=== PATIENT | male | born 1990 | race Caucasian/White ===

== ENCOUNTER 2019-08-02 14:20 | Inpatient (IN) | payer MEDICAID ==
[~2019-08-02] VITALS: Ht 185.4 cm; Wt 109.8 kg
[2019-08-02 15:07] LABS: PLATELET COUNT 201 x10^3mcL (130-400); RED CELL DISTRIBUTION WIDTH 13.8 % (11.5-14.5)
[2019-08-02 15:14] LABS: CALCIUM 8.5 mg/dL (8.5-10.1); CARBON DIOXIDE 26.1 mmol/L (21-32); CHLORIDE SERUM 92 mmol/L (98-107); GFR1 > 60 mL/min; GLUCOSE SERUM 107 mg/dL (74-106); POTASSIUM SERUM 3.6 mmol/L (3.5-5.1); SODIUM SERUM 129 mmol/L (136-145)
[2019-08-02 15:19] LABS: ALKALINE PHOSPHATASE 189 U/L (46-116); ALT/SGPT 91 U/L (16-63); AST/SGOT 62 U/L (15-37); BILIRUBIN TOTAL 3.9 mg/dL (0.20-1.00); LIPASE 134 IU/L (73-393); TOTAL PROTEIN, SERUM 7.6 g/dL (6.4-8.2)
[2019-08-02 15:20] LABS: ALBUMIN 2.7 g/dL (3.4-5.0)
[2019-08-02 16:06] LABS: BAND NEUTROPHIL 10 % (0-10); METAMYELOCTE 3 % (0-2); MONOCYTE 7 % (0-7); SEGMENTED NEUTROPHILS 75 % (37-75); rbc morphology (normal/abnorm) NORMAL (NORMAL)
[2019-08-02 16:11] LABS: PLATELET MORPHOLOGY FEW LARGE PLATELET
--- NOTE | 2019-08-02 17:05 | NUR ---
ABD PAIN X4 DAYS WITH N/V/D NO FEVER BUT CHILLS AT NIGHT. PAIN TO UPPER QUADRANTS, TENDER TO PALPATION , HYPOACTIVE BOWEL SOUNDS IN LUQ. ACTIVE BOWEL SOUNDS IN OTHER QUADRANTS. NOT ABLE TO HOLD FLUIDS OR FOOD FOR FOUR DAYS.
--- NOTE | 2019-08-02 17:38 | NUR ---
PT TO CT, INSTRUCTED TO GIVE URINE FOR TEST WHEN RETURNS. AMBULATORY WITHOUT ASSISTANCE
--- NOTE | 2019-08-02 18:36 | NUR ---
PT TO DO APPENDECTOMY, TEAM TO COME IN 30 MIN
--- NOTE | 2019-08-02 19:37 | NUR ---
DR Michel BYRD AT BEDSIDE SPEAKING WITH PT ABOUT THE PROCEDURE, PT AGREES PT WILL SIGN THE CONSENT WHEN HE GETS TO OR. PT IS A/XR
[2019-08-02 19:44] LABS: UA SPECIFIC GRAVITY <=1.005 (1.005-1.035); microscopic required? YES; urine erythrocyte TRACE (NEGATIVE)
--- NOTE | 2019-08-02 19:46 | NUR ---
DR MCKEON NOTIFIED OF HIGH TEMP. NO NEW ORDERS
[2019-08-02 19:52] LABS: AMPHETAMINE QUAL UR NONE DETECTED (See below)
--- NOTE | 2019-08-02 22:10 | NUR ---
RECEIVED PT FROM PACU, S/P LAPAROSCOPIC APPENDECTOMY. AAOX4. DENIES HEADACHE/ DIZZINESS. ABLE TO FOLLOW COMMANDS. NO SOB NOTED, LUNG SOUNDS CTA. DENIES CHEST PAIN/PRESSURE. DENIES ABDOMINAL DISCOMFORT. BOWEL SOUNDS ACTIVE. ABDOMEN IS SOFT. W/ 2 SMALL BAND-AIDS ON THE LEFT AND MID-ABDOMEN AND ABDOMINAL DRESSING ON THE LOWER ABDOMEN, CDI. W/ ALEN-SOUSA DRAINING SEROSANGUINEOUS DRAINAGE. MILD JAUNDICE NOTED. PULSES ARE PALPABLE. SIDE RAILS UPX2. CALL LIGHT ON REACH. ENDORSED TO PRIMARY NURSE SHLOMO FOR CONTINUITY OF CARE
[2019-08-02 22:24] VITALS: BP 121/69
[2019-08-02 22:32] VITALS: Ht 185.4 cm; Wt 109.8 kg
--- NOTE | 2019-08-03 05:51 | NUR ---
60 ML SANGUINEOUS DRAINAGE NOTED TO MAYRA DRAIN. ABD DRESSING AND BANDAIDS REMAIN IN PLACE, DRY, PATENT, AND INTACT. PT ADMITS TO VOIDS URINE FREELY, NO BM OR PASSING GAS AT THIS TIME. PT HOPING FOR DIET TO BE ADVANCED, DR. APGE MADE AWARE, WILL ANTICIPATE. NO ACUTE DISTRESS OBSERVED AT THIS TIME, PT LAYING IN BED, BREATHING EVEN AND UNLABORED. NO OTHER SIGNICIANT CHANGES TO REPORT, PT COMPLIED WITH NURSING CARE THROUGHOUT THE SHIFT WITH NO ACUTE EVENTS OVERNIGHT. CALL LIGHT WITHIN REACH. WILL CONTINUE TO MONITOR AND ENDORSE CARE TO DAY SHIFT NURSE
[2019-08-03 05:52] VITALS: BP 107/56
[2019-08-03 06:44] LABS: PLATELET COUNT 208 x10^3mcL (130-400); RED CELL DISTRIBUTION WIDTH 14.4 % (11.5-14.5)
[2019-08-03 07:01] LABS: CALCIUM 8.2 mg/dL (8.5-10.1); CARBON DIOXIDE 26.7 mmol/L (21-32); CHLORIDE SERUM 99 mmol/L (98-107); GFR1 > 60 mL/min; GLUCOSE SERUM 118 mg/dL (74-106); MAGNESIUM 2.4 mg/dL (1.8-2.4); PHOSPHOROUS 4.4 mg/dL (2.5-4.9); POTASSIUM SERUM 4.1 mmol/L (3.5-5.1); SODIUM SERUM 134 mmol/L (136-145)
--- NOTE | 2019-08-03 07:30 | NUR ---
PATIENT RESTING IN BED, NO ACUTE DISTRESS NOTED. PATIENT A/OX4, DENIES HEADACHE. LUNG SOUNDS CTA, INCENTIVE SPIROMETER AT BEDSIDE. PATEINT DENIES PAIN. GENERALIZED WEAKNESS NOTED, WALKER AT BEDSIDE. ABDOMINAL DRESSING CDI WITH ABDOMINAL BINDER. D5 1/2 NS INFUSING TO LEFT HAND AT 20ML/HR, IV SITE CDI & PATENT, NO S/S OF INFILTRATION. CALL LIGHT WITHIN REACH, BED IN LOW POSITION, WILL CONTINUE TO MONITOR.
--- NOTE | 2019-08-03 07:50 | NUR ---
RECEIVED PATIENT RESTING IN BED, NO ACUTE DISTRESS NOTED. PATIENT C/O DISCOMFORT 03/11 TO ABDOMEN, PATIENT STATES PAIN IS TOLERABLE, AND INCREASES WITH MOVEMENT. DENIES SOB, LUNG SOUNDS CTA, PATIENT ON ROOM AIR. PATIENT DENIES BURPING, PASSING GAS, OR BM. BOWEL SOUNDS HYPOACTIVE, ENCOURAGE PATIENT TO AMBULATE TOLERATED, PATIENT AWARE THIS PROMOTES PERISTALSIS. PATIENT IS AMBULATORY WITH NO ASSIST. DRESSING TO ABDOMEN CDI & NO DRAINAGE NOTED. MAYRA DRAIN, DRAINING TO GRAVITY. NS IV INFUSING TO RAC @ 100ML/HR, IV SITE CDI & PATENT, NO S/S OF INFILTRATION. CALL LIGHT WITHIN REACH, BED IN LOW POSITION, WILL CONTINUE TO MONIOTR.
[2019-08-03 09:10] LABS: MONOCYTE 1 % (0-7); SEGMENTED NEUTROPHILS 98 % (37-75)
[2019-08-03 09:16] VITALS: BP 127/71
[2019-08-03 09:20] LABS: rbc morphology (normal/abnorm) NORMAL (NORMAL)
--- NOTE | 2019-08-03 12:50 | NUR ---
PATIENT RESTING IN BED, CONVERSING WITH FAMILY. NO ACUTE DISTRESS NOTED. PATIENT C/O ABDOMINAL DISCOMFORT, BUT TOLERABLE. ENCOURAGED PATIENT TO AMBULATE TOLERATED, PATIENT STATED HE AMBULATED IN THE ROOM. WILL CONTINUE TO MONITOR.
--- NOTE | 2019-08-03 16:05 | NUR ---
ABX GIVEN A THIS TIME. PATIENT CONVERSING WITH FAMILY AT BEDSIDE. PATIENT DENIES PAIN. PATIENT STATES HE HAS BEEN ABLE TO BURP, NO GAS OR BM NOTED. ALL NEEDS MET AT THIS TIME. CALL LIGHT WITHIN REACH, WILL CONTINUE TO MONITOR.
[2019-08-03 16:33] VITALS: BP 121/60
--- NOTE | 2019-08-03 18:37 | NUR ---
PATIENT RESTING COMFORTABLY, NO ACUTE DISTRESS NOTED. PATIENT DENIES PAINS. ALL NEEDS MET AT THIS TIME. NS IV INFUSING TO RAC AT 70ML/HR, IV SITE CDI&PATENT, NO S/S OF INFILTRATION. CALL LIGHT WITHIN REACH, BED IN LOW POSITION. WILL ENDORSE REPORT TO NIGHT NURSE.
--- NOTE | 2019-08-03 18:40 | NUR ---
PATIENT RESTING COMFORTABLY, NO ACUTE DISTRESS NOTED. PATIENT C/O PAIN TO ABDOMEN, WILL MEDICATE PER PROTOCOL. MAYRA DRAIN OUTPUT 30ML. ALL NEEDS MET AT THIS TIME. NS IV INFUSING TO RAC AT 70ML/HR, IV SITE CDI&PATENT, NO S/S OF INFILTRATION. CALL LIGHT WITHIN REACH, BED IN LOW POSITION. WILL ENDORSE REPORT TO NIGHT NURSE.
--- NOTE | 2019-08-03 19:54 | NUR ---
Awake and verbally responsive. No respiratory distress noted on room air. Denies pain at this time. Denies n/v. Encouraged ambulation. Abd'l. dressing intact. windy x1 with minimal serosanguineous drainage. Visitor at the bedside. Will cont.to monitor.
[2019-08-03 20:15] VITALS: BP 125/65
--- NOTE | 2019-08-04 04:11 | NUR ---
Afebrile. No significant change in condition noted. Medicated as ordered for c/o back pain, [place] 1 tab given with relief. Denies n/v. MAYRA x1 with 20ml serosanguineous output. Cont.on IV zosyn. Ambulated.
[2019-08-04 05:43] VITALS: BP 114/57
--- NOTE | 2019-08-04 07:50 | NUR ---
PATIENT RESTING IN BED, PATIENT C/O PAIN TO LOWER BACK. PATIENT REPOSITIONED FOR COMFORT. PATIENT A/O X4, DENIES DIZZINESS, HEADACHE. LUNG SOUNGS CLEAR, DENIES SOB. PATIENT DENIES NAUSEA/VOMITTING. PATIENT DENIES BM, PATIENT STATES HES BEEN PASSING GAS. PATIENT AMBULATES WITH NO ASSISTANCE. NS IV INFUSING TO RAC AT 70ML/HR, IV SITE CDI&PATENT, NO S/S OF INFILTRATION. CALL LIGHT WITHIN REACH, BED IN LOW POSITION, WILL CONTINUE TO MONITOR.
[2019-08-04 08:00] LABS: ALKALINE PHOSPHATASE 156 U/L (46-116); ALT/SGPT 83 U/L (16-63); AST/SGOT 69 U/L (15-37); BILIRUBIN TOTAL 3.3 mg/dL (0.20-1.00); CALCIUM 7.6 mg/dL (8.5-10.1); CARBON DIOXIDE 26.6 mmol/L (21-32); CHLORIDE SERUM 100 mmol/L (98-107); GFR1 > 60 mL/min; GLUCOSE SERUM 90 mg/dL (74-106); PHOSPHOROUS 3.8 mg/dL (2.5-4.9); POTASSIUM SERUM 4.1 mmol/L (3.5-5.1); SODIUM SERUM 138 mmol/L (136-145)
[2019-08-04 08:01] LABS: ALBUMIN 2.2 g/dL (3.4-5.0); PLATELET COUNT 283 x10^3mcL (130-400); TOTAL PROTEIN, SERUM 5.8 g/dL (6.4-8.2)
--- NOTE | 2019-08-04 08:05 | NUR ---
PATIENT WAS C/O PAIN TO LOWER BACK 07/12, VITAL SIGNS STABLE. MEDICATED PATIENT WITH MORPHINE PER PROTOCOL (SEE EMAR). EDUCATED PATIENT ON PAIN MANAGEMENT, PATIENT VERBALIZED UNDERSTANDING. WILL CONTINUE TO MONITOR FOR CHANGES.
[2019-08-04 08:06] LABS: RED CELL DISTRIBUTION WIDTH 14.9 % (11.5-14.5)
[2019-08-04 09:04] VITALS: BP 121/62
[2019-08-04 10:23] LABS: MONOCYTE 5 % (0-7); SEGMENTED NEUTROPHILS 80 % (37-75)
[2019-08-04 10:39] LABS: rbc morphology (normal/abnorm) NORMAL (NORMAL)
[2019-08-04 10:40] LABS: PLATELET MORPHOLOGY PLATELETS NORMAL
--- NOTE | 2019-08-04 14:45 | NUR ---
PATIENT WAS C/O OF ABDOMINAL PAIN 06/11, MEDICATED PATIENT WITH NORCO PER PROTOCOL (SEE EMAR). WILL CONTINUE TO MONITOR AND MANAGED PAIN. CALL LIGHT WITHIN REACH.
[2019-08-04 16:40] VITALS: BP 125/64
--- NOTE | 2019-08-04 18:51 | NUR ---
PATIENT IV TO RAC, WAS ACCIDENTLY PULLED OUT. IV CATH TO RAC INTACT.
--- NOTE | 2019-08-04 19:25 | NUR ---
REPORT RECEIVED FROM DAY SHIFT RN. PATIENT IS RESTING IN BED COMFORTABLY IN BED. NO DISTRESS NOTED. BREATHING EVEN AND UNLABORED ON ROOM AIR. NO SOB NOTED. NO IV ACCESS. WILL REINSERT NEW IV. DENIES CHEST PAIN/PRESSURE. NO C/O PAIN. ABD BANDAIDS X3 WITH DRESSING TO LOWER ABD AND MAYRA DRAIN. MINIMAL SEROSANGUINOUS DRAINAGE NOTED. DRESSING CDI. COMFORT AND SAFETY MEASURES IN PLACE. CALL LIGHT IS WITHIN REACH. BED IS LOCKED AND IN THE LOWEST POSITION. SIDE RAILS X2. WILL CONTINUE TO MONITOR.
--- NOTE | 2019-08-04 19:30 | NUR ---
NEW IV INSERTED TO RFA, 22G. PATIENT TOLERATED WELL. NEW IV FLUSHED WELL. PATENT AND INTACT. NO REDNESS OR SWELLING NOTED. INFUSING NS WELL. SAFETY MEASURES IN PLACE. CALL LIGHT IS WITHIN REACH. WILL CONTINUE TO MONITOR.
[2019-08-04 20:32] VITALS: BP 118/64
--- NOTE | 2019-08-04 23:15 | NUR ---
C/O 07/12 ABD PAIN. PRN NORCO GIVEN PRESCRIBED (SEE EMAR). MED EDUCATION GIVEN. NO DISTRESS NOTED. BREATHING EVEN AND UNLABORED. IVF INFUSING WELL. SAFETY MEASURES IN PLACE. CALL LIGHT IS WITHIN REACH. WILL CONTINUE TO MONITOR
--- NOTE | 2019-08-05 01:41 | NUR ---
RESTING IN BED WITH EYES CLOSED. NO DISTRESS NOTED. BREATHING EVEN AND UNLABORED ON ROOM AIR. NO SOB OR RESP DISTRESS NOTED. IVF INFUSING WELL. SAFETY MEASURES IN PLACE. CALL LIGHT IS WITHIN REACH. WILL CONTINUE TO MONITOR.
[2019-08-05 04:52] VITALS: BP 129/71
--- NOTE | 2019-08-05 05:02 | NUR ---
EMPTIED 20ML OF SEROSANGUINEOUS OUTPUT OUT OF MAYRA DRAIN. PAGE GATED DR PAGE ABOUT NO BM SINCE 08/01. PATIENT REPORTS HE HAS BEEN PASSING GAS. VOIDED X3
--- NOTE | 2019-08-05 05:13 | NUR ---
C/O 07/12 ABD PAIN. MEDICATED WITH PRN NORCO AND PRN COLACE WITH FOR CONSTIPATION. MEDICATED EDUCATION GIVEN. NO DISTRESS NOTED. BREATHING EVEN AND UNLABORED. CALL LIGHT IS WITHIN REACH. WILL CONTINUE TO MONITOR.
--- NOTE | 2019-08-05 06:01 | NUR ---
RESTED IN LONG INTERVALS THROUGHOUT THE NIGHT. NO ACUTE CHANGES NOTED. BREATHING EVEN AND UNLABORED ON ROOM AIR. NO SOB NOTED. NO DISTRESS NOTED. IVF INFUSING WELL TO RFA. PATENT AND INTACT. NO REDNESS OR SWELLING NOTED. C/O PAIN X2. MEDICATED W/ PRN NORCO W/ GOOD RELIEF. DENIES CHEST PAIN/PRESSURE. ABD DRESSING IN PLACE W/ BANDAIDS X3 AND MAYRA DRAIN. 20ML OUT OF SEROSANGUINEOUS OUTPUT NOTED. ALL NEEDS AND CONCERNS ADDRESSED. SAFETY MEASURES IN PLACE. CALL LIGHT IS WITHIN REACH. WILL ENDORSE CARE TO ONCOMING RN.
[2019-08-05 07:10] LABS: CALCIUM 7.7 mg/dL (8.5-10.1); CARBON DIOXIDE 26.6 mmol/L (21-32); CHLORIDE SERUM 98 mmol/L (98-107); CREATININE SERUM 0.9 mg/dL (0.7-1.3); GFR1 > 60 mL/min; GLUCOSE SERUM 104 mg/dL (74-106); POTASSIUM SERUM 3.5 mmol/L (3.5-5.1); SODIUM SERUM 134 mmol/L (136-145)
[2019-08-05 07:21] LABS: PLATELET COUNT 342 x10^3mcL (130-400)
[2019-08-05 07:30] LABS: RED CELL DISTRIBUTION WIDTH 14.8 % (11.5-14.5)
--- NOTE | 2019-08-05 08:00 | NUR ---
RECEIVED PATIENT FROM HARMAN DEVINE. PATIENT IN BED AT THIS TIME W NO COMPLAINTS OF PAIN. SPOKE W PATIENT ABOUT CURRENT PLAN AND TO WAIT FOR SURGEON AND RESIDENT TO COME SPEAK WITH PATIENT TODAY. DR LUGO PASSING BY STATES SHE WOULD LIKE TO DC HIM TODAY IF WBCs ARE LOW, ALSO AWARE THAT MAYRA DRAIN HAS 10ML DRAINAGE. PATIENT AGREES AND ALSO STATES HE IS WALKING AND PASSING FLATUS. WILL CONTINUE TO MONITOR FOR PAIN AND AWAIT FOR PAIN FOR TODAY. CALL LIGHT IN REACH.
[2019-08-05 08:40] VITALS: BP 129/78
[2019-08-05 10:23] LABS: BAND NEUTROPHIL 2 % (0-10); SEGMENTED NEUTROPHILS 92 % (37-75)
[2019-08-05 10:24] LABS: BASOPHIL 0 % (0-2); PLATELET MORPHOLOGY PLATELETS NORMAL; rbc morphology (normal/abnorm) ABNORMAL (NORMAL)
--- NOTE | 2019-08-05 10:56 | NUR ---
DR HENRIQUEZ IN TO SPEAK WITH PATIENT. STATES PATIENT IS TO STAY ONE EXTRA DAY DUE TO ELEVATED WBCs. PATIENT AGREES. FAMILY AT BEDSIDE. PRN NORCO GIVEN TO PATIENT FOR PAIN CONTROL. ABDOMINAL INCISIONS CDI. CALL LIGHT IN REACH.
--- NOTE | 2019-08-05 13:30 | NUR ---
PATIENT IN BED. TOLERATING LUNCH TRAY. NO COMPLAINTS OF PAIN AT THIS TIME. STILL NO BM. WILL CONTINUE TO MONITOR. SPOKE TO DR LUGO THAT PATIENT STATES HE DOES NOT HAVE A PREFERRED PHARMACY. DR LUGO STATES TO ADD THE LOCAL [facility] ON [facility] TO FILE. CALL LIGHT IN REACH.
[2019-08-05 16:56] VITALS: BP 135/84
--- NOTE | 2019-08-05 19:30 | NUR ---
REPORT GIVEN TO HARMAN ESTRADA. PATIENT IN BED, TOLD TO AMBULATE TO HELP PRODUCE BM. PATIENT VERBALIZES UNDERSTANDING. ALSO ENDORSED THAT PATIENT REQUESTED SLEEP AID. HARMAN ESTRADA MADE AWARE. CALL LIGHT IN REACH.
--- NOTE | 2019-08-05 20:00 | NUR ---
RECEIVED REPORT FROM DAY SHIFT NURSE. PT IS A/O X4. SPEECH IS CLEAR. DENIES ECHOLS. DENIES CP. PULSES ARE PALPABLE. NO EDEMA PRESENT. BREATHING IS EVEN AND UNLABORED ON RA. NO SIGNS OF RESP. DISTRESS. LUNG SOUNDS CTA BILATERALLY. ABD IS SOFT AND NONDISTENDED. BS ACTIVE IN ALL 4Q. PT DENIES PAIN AT THIS TIME. 4 SURGICAL INCISIONS WITH 3 BANDAIDS. DRESSING IS CLEAN AND INTACT. NO DRAINAGE. IV TO RFA DRY AND INTACT. NO REDNESS OR SWELLING PRESENT. INFUSING WELL. BED IN LOWEST POSITION. CALL LIGHT WITHIN REACH. WILL CONTINUE TO MONITOR.
[2019-08-05 22:38] VITALS: BP 119/78
--- NOTE | 2019-08-05 22:55 | NUR ---
PT IS LYING IN BED AWAKE. BREATHING IS EVEN AND UNLABORED. DENIES ANY PAIN AT THIS TIME. ENCOURAGED PT TO USE CALL LIGHT IF IN NEED OF ANY ASSISTANCE OR HAVING ANY PAIN. BED IN LOWEST POSITION. WILL CONTINUE TO MONITOR.
--- NOTE | 2019-08-05 23:04 | NUR ---
PAGE GATED DR. PAGE ABOUT PT WANTING SLEEPING PILL. AWAITING ORDERS
--- NOTE | 2019-08-05 23:09 | NUR ---
SPOKE TO DR PAGE, STATED HE WILL PUT ORDERS IN. AWAITING ORDERS.
--- NOTE | 2019-08-06 02:14 | NUR ---
PT IS ASLEEP BUT EASILY AROUSABLE WHEN SPOKEN TO. DENIES PAIN AT THIS TIME. BREATHING IS EVEN AND UNLABORED ON RA. NO RESP DISTRESS. ENCOURAGED PT TO USE IS. CALL LIGHT WITHIN REACH. BED IN LOWEST POSITION. WILL CONTINUE TO MONITOR.
--- NOTE | 2019-08-06 04:14 | NUR ---
PT IS RESTING WITH EYES CLOSED, EASILY AROUSABLE WHEN SPOKEN TO. BREATHING IS EVEN AND UNLABORED. NO SIGNS OF RESP. DISTRESS. BED IN LOWEST POSITION. CALL LIGHT WITHIN REACH. WILL CONTINUE TO MONITOR.
--- NOTE | 2019-08-06 04:53 | NUR ---
PT SLEPT IN INTERVALS THROUGHOUT THE NIGHT. PT COMPLIED WITH NURSING CARE THROUGHOUT SHIFT W/ NO ACUTE EVENTS OVERNIGHT. COMFORT AND SAFETY MEASURES MAINTAINED. ALL NEEDS ASSESSED AND ATTENDED TO. WILL CONTINUE TO MONITOR AND ENDORSE CARE TO DAY SHIFT NURSE.
[2019-08-06 05:44] VITALS: BP 117/65
[2019-08-06 06:58] LABS: PLATELET COUNT 469 x10^3mcL (130-400); RED CELL DISTRIBUTION WIDTH 15.2 % (11.5-14.5)
--- NOTE | 2019-08-06 07:12 | NUR ---
ENDORSED CARE TO SPENSER HAMMER.
--- NOTE | 2019-08-06 07:28 | NUR ---
RECEIVED PATIENT FROM HARMAN HOGAN. PATIENT IN BED SLEEPING AT THIS TIME. PATIENT SHOWS NO SIGNS OF DISTRESS. PLAN FOR TODAY IS TO AMBULATE PATIENT TOLERATED PATIENT DID NOT AMBULATE YESTERDAY AM OR PM SHIFT. CALL LIGHT IN REACH AT THIS TIME.
[2019-08-06 07:36] LABS: ALKALINE PHOSPHATASE 167 U/L (46-116); ALT/SGPT 124 U/L (16-63); AST/SGOT 102 U/L (15-37); CALCIUM 8.2 mg/dL (8.5-10.1); CHLORIDE SERUM 99 mmol/L (98-107); GFR1 > 60 mL/min; GLUCOSE SERUM 96 mg/dL (74-106); MAGNESIUM 2.2 mg/dL (1.8-2.4); PHOSPHOROUS 3.5 mg/dL (2.5-4.9); POTASSIUM SERUM 4.3 mmol/L (3.5-5.1); SODIUM SERUM 135 mmol/L (136-145); TOTAL PROTEIN, SERUM 6.9 g/dL (6.4-8.2)
[2019-08-06 07:37] LABS: ALBUMIN 2.1 g/dL (3.4-5.0)
[2019-08-06 09:25] VITALS: BP 123/60
--- NOTE | 2019-08-06 10:04 | NUR ---
DR HENRIQUEZ IN TO SPEAK WITH PATIENT. STATES THAT PATIENT CONTINUES TO HAVE ELEVATED WBCS AND THAT DR ALVAREZ HAS BEEN CONSULTED. REINFORCED TO PATIENT THAT HE NEEDS TO AMBULATE. PATIENT HAS BEEN SEEN AMBULATING WITHOUT ASSISTANCE THIS AM. PATIENT VERBALIZES UNDERSTANDING. CALL LIGHT IN REACH. NO PAIN AT THIS TIME.
[2019-08-06 10:16] LABS: BAND NEUTROPHIL 11 % (0-10)
[2019-08-06 10:17] LABS: ATYPICAL LYMPH 3 %; MONOCYTE 7 % (0-7)
[2019-08-06 10:18] LABS: SEGMENTED NEUTROPHILS 67 % (37-75)
[2019-08-06 10:19] LABS: rbc morphology (normal/abnorm) NORMAL (NORMAL)
[2019-08-06 10:20] LABS: PLATELET MORPHOLOGY PLATELETS INCREASED
[2019-08-06 16:11] VITALS: BP 139/69
--- NOTE | 2019-08-06 16:59 | NUR ---
PATIENT OBSERVED STANDING BY BEDSIDE. NO COMPLAINTS AT THIS TIME. MAYRA DRAINAGE REMOVED PER SURGEON, PATIENT TOLERATED. DRESSING CHANGED, NOW CLEAN DRY AND INTACT. CALL LIGHT IN REACH, FAMILY AT BEDSIDE.
--- NOTE | 2019-08-06 18:48 | NUR ---
PATIENT STATES HIS ABDOMINAL PAIN IS SLOWLY RETURNING, AND THAT HE THINKS "ITS JUST GAS". ENCOURAGED PATIENT TO AMBULATE AND PATIENT AGREES. SPOKE WITH PATIENT TO TRY PRN TYLENOL IF AMBULATION NOT EFFECTIVE. WILL ENDORSE TO ONCOMING NURSE AND WAIT FOR DR ALVAREZ. CALL LIGHT IN REACH.
--- NOTE | 2019-08-06 19:40 | NUR ---
RECEIVED REPORT FROM HARMAN DUEÑAS. PT IS AAOX4. PT IS LAYING IN BED WITH HOB ELEVATED. DENIES ANY HEADACHE OR DIZZINESS AT THIS TIME. PT IS MED-SURG, NO TELE. DENIES ANY S/S OF CHEST PAIN OR DISCOMFORT AT THIS TIME. PULSES ARE PALPABLE AND NO EDEMA NOTED. SCD'S ARE IN PLACE BLE. LUNG SOUNDS ARE CTA AND BREATHING IS EVEN AND UNLABORED. PT IS ON RA O2 SAT OF 96%. BOWEL SOUNDS ARE ACTIVE X4. LAST BM WAS 08/06/19 AND WAS FORMED. PT HAS INTERMITTENT ABD PAIN DUE TO S/P LAP APPY. ABD INCISIONS X3 WITH LYDIA IN PLACE WELL DRESSINGS. INCISION SITES ARE WNL. NO S/S OF REDNESS, SWELLING, DRAINAGE. PT VOIDS FREELY IN BATHROOM. PT IS AMBULATORY. PT 22G IV IN RFA WAS D/C. NEW IV WAS INSERTED BY HARMAN LAWRENCE. NEW IV IS 20G IN RFA. IV SITE IS WNL. CALL LIGHT WITHIN REACH. BED IN LOWEST POSITION. WILL CONTINUE TO MONITOR.
--- NOTE | 2019-08-06 20:00 | NUR ---
RECEIVED CALL FROM RADIOLOGYRODY. RODY WANTED TO CONFIRM RFA 22G IV IS PATENT FOR CT PELVIS WITH CONTRAST.
--- NOTE | 2019-08-06 20:25 | NUR ---
RECEIVED CALL FROM RADIOLOGY RODY. PT WILL BE NEEDING NEW IV FOR CT PELVIS SCAN. WILL INSERT NEW IV IN PT. WILL CALL RADIOLOGY AFTER INSERTION IS SUCCESSFUL.
[2019-08-06 21:05] VITALS: BP 126/74
--- NOTE | 2019-08-06 21:43 | NUR ---
PT'S 22G IV IN RFA WAS D/C. CATH INTACT. HARMAN LAWRENCE INSERTED NEW 20G IN RFA. IV IS PATENT AND FLUSHES WELL. NO S/S OF PAIN, REDNESS, OR SWELLING NOTED. WILL NOTIFY RADIOLOGY RODY OF NEW IV INSERTION.
--- NOTE | 2019-08-06 22:25 | NUR ---
DR. DAVIDSON SAW PT AT BEDSIDE AND WAS MADE AWARE OF INCREASED WBC AND THAT ZOSYN IS BEING ADMINISTERED PER ORDERS. IS WAITING FOR PENDING CT WITH CONTRAST RESULTS.
[2019-08-07 06:00] VITALS: BP 124/65
--- NOTE | 2019-08-07 06:19 | NUR ---
PT COMPLIED WITH NURSING CARE THROUGHOUT SHIFT. PT SLEPT MOST OF THE NIGHT, BUT EASILY AROUSABLE. NO ACUTE EVENTS OVERNIGHT. COMFORT AND SAFETY MEASURES MAINTAINED. ALL NEEDS AND CONCERNS ADDRESSED. PRIOR IV 22G RFA WAS D/C. NEW IV INSERTION 08/06/19 RFA 20G. IV SITE IS PATENT AND WNL. PT C/O ABD PAIN 2X. ADMINISTERED NORCO FOR PAIN 2X. WILL CONTINUE TO MONITOR. WILL ENDORSE CARE TO DAY SHIFT NURSE.
[2019-08-07 06:59] LABS: CALCIUM 8.6 mg/dL (8.5-10.1); CARBON DIOXIDE 25.2 mmol/L (21-32); CHLORIDE SERUM 98 mmol/L (98-107); CREATININE SERUM 0.9 mg/dL (0.7-1.3); GFR1 > 60 mL/min; GLUCOSE SERUM 106 mg/dL (74-106); POTASSIUM SERUM 4.4 mmol/L (3.5-5.1); SODIUM SERUM 133 mmol/L (136-145)
[2019-08-07 07:01] LABS: PLATELET COUNT 539 x10^3mcL (130-400); RED CELL DISTRIBUTION WIDTH 14.9 % (11.5-14.5)
--- NOTE | 2019-08-07 07:18 | NUR ---
ENDORSED CARE TO RN SPENSER. NO ACUTE DISTRESS NOTED AT THIS TIME. PT CALM AND COOPERATIVE WITH NURSING CARE.
--- NOTE | 2019-08-07 07:57 | NUR ---
RECEIVED PATIENT FROM HARMAN LAWRENCE. PATIENT IN BED AT THIS TIME. PRIOR SHIFT ADMINISTERED PRN NORCO. PATIENT WBCs CONTINUE TO BE ELEVATED BUT NO SIGNS OF FEVER OR DIAPHORESIS. ENCOURAGED PATIENT TO AMBULATE AND PATIENT AGREES. CALL LIGHT IN REACH AT THIS TIME.
[2019-08-07 09:52] VITALS: BP 130/67
--- NOTE | 2019-08-07 10:15 | NUR ---
DR HENRIQUEZ AND DR PEACOCK IN TO SPEAK WITH PATIENT. STATES THAT ON CT SCAN LAST TIME, ADDITIONAL FLUID REMAINS IN ABDOMEN. SURGICAL CONSULT WILL BE ORDER TO DRAIN FLUID, POSS ABCESS. PATIENT UNDERSTANDS AND AGREES WITH PLAN. CALL LIGHT IN REACH AT THIS TIME.
[2019-08-07 12:26] LABS: ATYPICAL LYMPH 1 %; BAND NEUTROPHIL 28 % (0-10); SEGMENTED NEUTROPHILS 57 % (37-75)
[2019-08-07 12:27] LABS: METAMYELOCTE 3 % (0-2); MONOCYTE 6 % (0-7); MYELOCYTE 4 % (0-2); rbc morphology (normal/abnorm) ABNORMAL (NORMAL)
[2019-08-07 12:30] LABS: PLATELET MORPHOLOGY PLATELETS INCREASED
--- NOTE | 2019-08-07 16:31 | NUR ---
PATIENT IN BED, HAS MILD COMPLAINTS OF ABDOMINAL PAIN. PRN TYLENOL PO ADMINISTERED. EFFECTIVE. AFTERWARDS, PATIENT ASKED FOR ANOTHER TYLENOL BUT ONLY NORCO SCHEUDLED. COLD COMPRESS GIVEN AND APPLIED. MENS LOCKER ROOM ATTENDANT AVA IN TO SPEAK TO PATIENT ABOUT ORAL CONTRAST. ORAL CONTRAST BEGUN AND WILL CONTINUE TO MONITOR. PATIENT AWARE TO COMPLETE CONTRAST FOR CT SCAN.
[2019-08-07 16:51] VITALS: BP 106/66
--- NOTE | 2019-08-07 18:31 | NUR ---
PATIENT SEATED IN BED. COMPLAINS OF MODERATE ABDOMINAL PAIN. ABLE TO HAVE SMALL BM TODAY AND CONTINUES TO PASS GAS. CURRENTLY TOLERATED ORAL CONTRAST AND AWARE TO STAY NPO UNTIL CT SCAN. WILL ENDORSE TO ONCOMING NURSE. CALL LIGHT IN REACH.
--- NOTE | 2019-08-07 19:18 | NUR ---
PT RECEIVED AWAKE AND ALERT, ABLE TO MAKE NEEDS KNOWN. MED-SURG, DENIES ANY CP/PRESSURE. PULSES PALPABLE, NO EDEMA BREATHING. BREATHING IS EVEN AND UNLABORED ON RA, DENIES SOB, NO RESP DISTRSES OBSERVED. ABD SOFT AND NONDISTENDED, BOWEL TONES X4 QUAD, DENIES N/V. S/P LAP APPY ON 08/02, ABD INCISIONS X3 WITH LYDIA AND BANDAIDS, LOWER ABD DRSG NOTED, CDI. PT CONT ON ORAL CONTRAST FOR CT ABD+PELVIS WITH CONTRAST, WILL NOTIFY CT WHEN PT FINISHES CONTRAST. PT DENIES ANY PAIN AT THIS TIME. IV TO RFA, PATENT AND INTACT, SITE WNL. NO ACUTE DISTRESS NOTED. BED IN LOWEST SETTING, SIDE RAILS UP X2, CALL LIGHT, WILL CONT TO MONITOR.
--- NOTE | 2019-08-07 20:00 | NUR ---
PT FINISHED DRINKING ORAL CONTRAST AND TOLERATED WELL. CT MADE AWARE.
[2019-08-07 20:20] VITALS: BP 133/70
--- NOTE | 2019-08-07 21:39 | NUR ---
PT C/O 04/11 ABD PAIN, PRN NORCO GIVEN ORDERED. NO ACUTE DISTRESS NOTED. WILL CONT TO MONITOR.
--- NOTE | 2019-08-08 00:40 | NUR ---
DR ALVAREZ IN TO SEE PT. UPDATED ON PT'S STATUS AND CT ABD+PELVIS WITH ORAL/PO CONTRAST RESULTS. PER DR ALVAREZ, CONT ABX THERAPY.
--- NOTE | 2019-08-08 01:33 | NUR ---
PT C/O MILD ABD PAIN, PRN TYLENOL GIVEN ORDERED. NO ACUTE DISTRESS NOTED. WILL CONT MONITOR.
[2019-08-08 05:39] VITALS: BP 127/70
[2019-08-08 07:04] LABS: RED CELL DISTRIBUTION WIDTH 14.6 % (11.5-14.5)
[2019-08-08 07:05] LABS: PLATELET COUNT 577 x10^3mcL (130-400)
[2019-08-08 07:16] LABS: CALCIUM 8.3 mg/dL (8.5-10.1); CARBON DIOXIDE 25.6 mmol/L (21-32); CHLORIDE SERUM 97 mmol/L (98-107); CREATININE SERUM 0.9 mg/dL (0.7-1.3); GFR1 > 60 mL/min; GLUCOSE SERUM 110 mg/dL (74-106); MAGNESIUM 2.2 mg/dL (1.8-2.4); PHOSPHOROUS 4.1 mg/dL (2.5-4.9); POTASSIUM SERUM 4.5 mmol/L (3.5-5.1); SODIUM SERUM 132 mmol/L (136-145)
--- NOTE | 2019-08-08 07:23 | NUR ---
RECEIVED REPORT FROM HOWARD HAMMER. PATIENT RESTING COMFORTABLY IN BED WITH ALL NEEDS MET. ALL QUESTIONS AND CONCERNS ADDRESSSED. ALL CARES ENDORSED.
--- NOTE | 2019-08-08 07:34 | NUR ---
PT SLEPT WELL THROUGHOUT THE EVENING. BREATHING IS EVEN AND UNLABORED, NO RESP DISTRESS NOTED. NO ACUTE CHANGES ENCOUNTERED DURING SHIFT. ALL NEEDS MET AND ANTICIPATED. PT C/O 04/11 ABD PAIN, PRN NORCO GIVEN ORDER. PT REPORTS GOOD RELIEF FROM PAIN MED. CALL LIGHT WITHIN REACH. CONT OF CARE ENDORSED TO AM NURSE.
--- NOTE | 2019-08-08 08:48 | NUR ---
DR POSADAS IN TO SEE PATIENT AND DISCUSS PLAN OF CARE. ENSURED NPO STATUS. ALL QUESTIONS AND CONCERNS ADDRESSED.
[2019-08-08 09:07] VITALS: BP 118/69
--- NOTE | 2019-08-08 11:29 | NUR ---
PATIENT TAKEN DOWNSTAIRS FOR PROCEDURE.
--- NOTE | 2019-08-08 12:20 | NUR ---
REPORT RECEIVED FROM RADIOLOGY. PATIENT HAD 240 GREY[place] FLUID REMOVED AND DRAIN PLACED. PT TOLERATED IT WELL. AWAITING PATIENT RETURN TO FLOOR.
[2019-08-08 12:22] LABS: BAND NEUTROPHIL 25 % (0-10); BASOPHIL 0 % (0-2); METAMYELOCTE 2 % (0-2); MONOCYTE 7 % (0-7); MYELOCYTE 4 % (0-2); SEGMENTED NEUTROPHILS 52 % (37-75)
[2019-08-08 12:23] LABS: rbc morphology (normal/abnorm) ABNORMAL (NORMAL)
[2019-08-08 12:35] VITALS: BP 114/60
--- NOTE | 2019-08-08 12:35 | NUR ---
PT RETURNED TO FLOOR. VITALS TAKEN AND STABLE (SEE DOCUMENTATION). DR LUGO PAGED TO NOTIFY AND REQUEST POSSIBLE DIET CHANGE.
[2019-08-08 17:00] VITALS: BP 126/63
--- NOTE | 2019-08-08 19:52 | NUR ---
REPORT GIVEN TO ROSANNE HAMMER. ALL QUESTIONS AND CONCERNS ADDRESSED. ALL CARES ENDORSED.
[2019-08-08 21:22] VITALS: BP 112/54
--- NOTE | 2019-08-08 22:23 | NUR ---
PT RECIEVED AAO REG RESP NO SOB V/S STABLE,IV INFUSING WELL WITH TORSTEN SITE PATENT AND INTACT,PT HAS INSICION OPA WITH OP SITE DRESSING AND LYDIA S/P LAP LOU,PT ALSO HAS DRAIN TO THE BAG SUCTION S/P CT GUIDED ABCESS DRAIN THICK LIGHT COFFEE WITH CREAMER SECREATION IN NATURE,SITE INTACT,NO PAIN REPORTED AT THIS TIME,MADE COMFORTABLE IN BED AND WILL CONTINUE TO MONITOR.
[2019-08-09 05:31] VITALS: BP 114/62
--- NOTE | 2019-08-09 06:33 | NUR ---
PT HAD A RESTING NIGHT NO CHANGE AT THIS TIME,WILL CONTINUE TO MONITOR.
--- NOTE | 2019-08-09 06:35 | NUR ---
PT HAD A RESTING NIGHT NO CHANGE AT THIS TIME,WILL CONTINU TO MONITOR.
--- NOTE | 2019-08-09 06:38 | NUR ---
PT HAD A RESTING NIGHT NO CHANGE AT THIS TIME,WILL CONTINUE TO MONITOR.
[2019-08-09 06:44] LABS: BASOPHIL % 0.2 % (0-2)
[2019-08-09 06:47] LABS: CALCIUM 8.5 mg/dL (8.5-10.1); CARBON DIOXIDE 26.1 mmol/L (21-32); CHLORIDE SERUM 98 mmol/L (98-107); GFR1 > 60 mL/min; GLUCOSE SERUM 101 mg/dL (74-106); MAGNESIUM 2.3 mg/dL (1.8-2.4); PHOSPHOROUS 4.2 mg/dL (2.5-4.9); POTASSIUM SERUM 4.4 mmol/L (3.5-5.1); SODIUM SERUM 132 mmol/L (136-145)
[2019-08-09 07:11] LABS: RED CELL DISTRIBUTION WIDTH 14.6 % (11.5-14.5)
--- NOTE | 2019-08-09 07:15 | NUR ---
RECIEVED PT RESTING IN BED WITH NO C/O PAIN OR DISTRESS. A/O X4. NS 1ML/HR RUNNING, IV INTACT AND PATENT WITH NO REDNESS OR INFLAMMATION NOTED. SAFETY PRECAUTIONS IN PLACE, CALL LIGHT WITHIN REACH, WILL MONITOR.
[2019-08-09 07:54] LABS: PLATELET COUNT 614 x10^3mcL (130-400)
[2019-08-09 09:12] VITALS: BP 115/57
--- NOTE | 2019-08-09 11:59 | NUR ---
PT STABLE WITH NO C/O PAIN OR DISTRESS. ACORDIAN DRAINAGE STILL IN PLACE AND DRAINING. SAFETY PRECAUTIONS IN PLACE, CALL LIGHT WITHIN REACH, WILL MONITOR.
[2019-08-09 16:47] VITALS: BP 122/69
--- NOTE | 2019-08-09 18:00 | NUR ---
PT STABLE AT THIS ITME WITH NO C/O PAIN OR DISTRESS. A/O X4. ALL CARES TOLERATED WELL. NS RUNNING AT 10ML/HR IN RFA. IV INTACT AND PATENT WITH NO REDNESS OR INFLAMMATION NOTED. ACCORDIAN DRAINAGE INTACT AND DRAINING. SAFETY PRECAUTIONS IN PLACE, CALL LIGHT WITHIN REACH, WILL ENDORSE TO NIGHT NURSE.
--- NOTE | 2019-08-09 19:47 | NUR ---
Awake and verbally responsive. No respiratory distress noted on room air. Denies pain at this time. Denies n/v. abd'l.incisions with ozzy -ken. Drain intact right side on the back with minimal purulent drainage. Will cont.to monitor. Call light within reach.
[2019-08-09 22:12] VITALS: BP 130/68
--- NOTE | 2019-08-10 04:50 | NUR ---
Afebrile. No significant change in condition noted. Pain controlled. Denies n/v. Drainage bag with 100ml purulent output. Cont.on IV zosyn.
[2019-08-10 05:58] VITALS: BP 120/64
--- NOTE | 2019-08-10 07:46 | NUR ---
REPORT RECEIVED FROM RESPIRATORY CARE FACULTY RNLINDA. PATIENT RESTING IN BED. NO SIGNS OF DISTRESS NOTED. WILL CONTINUE TO MONITOR. CALL LIGHT WITHIN REACH.
[2019-08-10 09:21] VITALS: BP 126/63
[2019-08-10 12:23] LABS: BASOPHIL % 0.3 % (0-2)
[2019-08-10 12:24] LABS: CALCIUM 8.9 mg/dL (8.5-10.1); CHLORIDE SERUM 96 mmol/L (98-107); GFR1 > 60 mL/min; GLUCOSE SERUM 108 mg/dL (74-106); POTASSIUM SERUM 4.5 mmol/L (3.5-5.1); SODIUM SERUM 131 mmol/L (136-145)
[2019-08-10 12:35] LABS: RED CELL DISTRIBUTION WIDTH 14.6 % (11.5-14.5)
[2019-08-10 13:36] LABS: PLATELET COUNT 727 x10^3mcL (130-400)
--- NOTE | 2019-08-10 13:59 | NUR ---
Initial Nutrition Assessment: 220/B IMELDA VAZQUEZ Dx: Ruptured appendix PMHx: none PSHx: none Labs: NA 132L, ALB 2.1L, AST 102H, ALT 124H, WBC 15.4H Meds: Colace, Dulcolax, norco, Zofran, zosyn Diet: Regular PO intake since admission: (08/10) breakfast 60%, (08/09) dinner 75%, lunch 100%, breakfast 20% Ht: 185.42 cm (73") Wt:109.7 kg (241#) BMI: 31.9 kg/m2 Bed scale: 219.3# IBW: 184# (84 kg) %IBW: 131 UBW: 240# Age: 28/M Food Allergies: NKFA Skin: abd incision w/ dressing, ozzy in place Bertrand: 21 Edema: none GI: Last BM: 08/09 Pt is a 28 years old male with no PMH who brought to ER due to abdominal pain 4 days ago. (Per H&P) RD Note (08/10): Patient was alert and oriented and said that his appetite is starting to get better and that he ate most of his breakfast this morning. Patient has lost ~ 20 # x 1 month. Patient does not want to consume and supplements or snacks between meals. Per progress note (08/09), Patient is S/P CT guided drainage of abscess. Patient POD # 7 of lap appy Problem with: N/V/D/C: none Problems with: Chewing: Swallowing: none Current appetite: good Recent wt change: lost 20# x 1 month %wt change: 8.6 Vitamin/Supplement use: none Special diet at home: Regular Physical activity: gym, walking Nutrition education given: none at this time. Patient did not have any diet/nutrition related questions. Food-drug interactions: Colace: high fiber w/ 3806-1677 ml fluid/day Education given: n/a Estimated Nutritional Needs Based on ideal body weight (84 kg) Energy: 0095-6918 kcal/day (25-30 kcal/kg for maintenance) Protein: 84- 101 g/day (1.0-1.2 g/kg for maintenance) Fluid: 3294-2467 mL/day (1 mL/kcal) Nutrition Diagnosis: 1. Unintentional weight loss related to hospitalization, surgery, poor PO as evidenced by self- reported weight loss of ~ 20# x 1 month Intervention 1. Recommend continuing regular diet. Monitor/Evaluate Goal: PO intake at least 75% of estimated needs Monitor: PO intake, Labs, GI function F/U in 7 days as low risk 08/17
--- NOTE | 2019-08-10 13:59 | NUR ---
1. Recommend continuing regular diet.
[2019-08-10 16:57] VITALS: BP 122/64
--- NOTE | 2019-08-10 19:20 | NUR ---
RECEIVED REPORT FROM HARMAN DELGADILLO. PT AAOX4. PT DENIES ANY HEADACHE OR DIZZINESS AT THIS TIME. PT IS MED-SURG. PT DENIES ANY CHEST PAIN OR DISCOMFORT AT THIS TIME. PULSES ARE PALPABLE. CAP REFILL <3 SEC. SCD'S BILATERALLY. BREATHING IS EVEN AND UNLABORED. LUNG SOUNDS CTA AND 99% O2 SAT ON RA. ABD SOFT AND NONDISTENDED WITH NORMOACTIVE BOWEL SOUNDS X4. LBM 08/10/19, FORMED. PT VOIDS FREELY. PT AMBULATES. PT HAS 3 SMALL INCISIONS WITH LYDIA ON ABD AND IS ESSIE. NO DRAINAGE PRESENT. PT HAS RIGHT FLANK ACCORDIAN DRAINAGE FOR ABSCESS AND DRAINING PURULENT MILKY DRAINAGE. PT HAS RH 22G IV AND IS PATENT AND WNL. PT CALM AND COOPERATIVE WITH NURSING CARE. CALL LIGHT WITHIN REACH. BED IN LOWEST POSITION. WILL CONTINUE TO MONITOR.
--- NOTE | 2019-08-10 20:12 | NUR ---
08/10/2019 AT 1930: PATIENT RESTING IN BED. FAMILY AT BEDSIDE. NO SIGNS OF DISTRESS. PATIENT AWARE OF PLAN FOR TOMORROW. WILL ENDORSE TO TRANSPLANT CASE MANAGER RN.
[2019-08-10 20:56] VITALS: BP 136/76
--- NOTE | 2019-08-11 00:46 | NUR ---
DR. ALVAREZ MAKING ROUNDS AND MADE AWARE ABSCESS CULTURE RESULT. NEW ORDERS RECEIVED. D/C ZOSYN. START PT ON LEVAQUIN AND FLAGYL. ORDER CARRIED OUT.
--- NOTE | 2019-08-11 01:11 | NUR ---
ADMINISTERED NORCO FOR BACK PAIN. WILL REASSESS IN 1 HOUR. WILL CONTINUE TO MONITOR.
[2019-08-11 05:53] VITALS: BP 119/64
[2019-08-11 06:22] LABS: BASOPHIL % 0.5 % (0-2)
--- NOTE | 2019-08-11 06:29 | NUR ---
PT COMPLIANT WITH NURSING CARE THROUGHOUT THE NIGHT. PT WAS IN AND OUT OF SLEEP MOST OF THE NIGHT. ADMINISTERED NORCO 1X FOR BACK PAIN. PT HAS RIGHT FLANK ACCORDIAN DRAINAGE THAT HAD AN OUTPUT OF 50CC OF PURULENT MILKY DRAININAGE. IV SITE WNL. CALL LIGHT WITHIN REACH. WILL CONTINUE TO MONITOR.
[2019-08-11 06:32] LABS: CALCIUM 8.4 mg/dL (8.5-10.1); CARBON DIOXIDE 26.1 mmol/L (21-32); CHLORIDE SERUM 99 mmol/L (98-107); CREATININE SERUM 0.9 mg/dL (0.7-1.3); GFR1 > 60 mL/min; GLUCOSE SERUM 99 mg/dL (74-106); POTASSIUM SERUM 4.2 mmol/L (3.5-5.1); SODIUM SERUM 132 mmol/L (136-145)
[2019-08-11 06:33] LABS: RED CELL DISTRIBUTION WIDTH 14.7 % (11.5-14.5)
--- NOTE | 2019-08-11 07:20 | NUR ---
RECEIVED PT FROM ANGELIA RN. PT AMBULATORY, ACTIVE FULL ROM NOTED, GAIT STEADY. USING RESTROOM, GAIT STEADY. VOIDS FREELY. AA/OX4. NO S/S OF ACUTE DISTRESS. NO SOB ON ROOM AIR. NO C/O PAIN. NO N/V AT THIS TIME. IV WNL TO RH, PATENT AND FLUSHING WELL. SITE WNL. INSTRUCTED TO USE CALL LIGHT TO CALL FOR ASSISTANCE PRN. VERBALIZED UNDERSTANDING. WILL CONT. TO MONITOR.
--- NOTE | 2019-08-11 07:22 | NUR ---
ENDORSED CARE TO RN EMIR. ALL QUESTIONS AND CONCERNS ADDRESSED.
[2019-08-11 07:25] LABS: PLATELET COUNT 706 x10^3mcL (130-400)
[2019-08-11 09:36] VITALS: BP 128/63
[2019-08-11 16:46] VITALS: BP 124/60
--- NOTE | 2019-08-11 18:45 | NUR ---
PT LAYING IN BED RESTING WITH BOTH EYES CLOSED. EASILY AROUSABLE TO VERBAL STIMULI. NO S/S OF ACUTE DISTRESS. NO SOB ON ROOM AIR. DENIES N/V. NO CHILLS. NO FEVER. CALM/COOPERATIVE. ACCORDIAN DRAIN TO RIGHT FLANK IN TACT, TOTAL OUTPUT FOR THIS SHIFT 50CC, FOUL ODOR NOTED, MILKY/PURULENT. ABD. INCISIONS X3 ESSIE, CDI. NO DRAINAGE NOTED. NO ABD. PAIN. DENIES DIARRHEA. IV WNL, IV FLUIDS FLOWING. BED IN LOW POSITION. CALL LIGHT WITHIN REACH. WILL ENDORSE TO ONCOMING SHIFT.
--- NOTE | 2019-08-11 19:32 | NUR ---
RECEIVED PT FROM DAY SHIFT RN. PT AAOX4 DENIES ECHOLS/DIZZINESS. BREATHING EVEN AND UNLABORED ON RA WITH NO SOB NOTED. MED SURG PT DENIES CHEST PAIN/PRESSURE. ABD SOFT/ROUND ACTIVE BOWEL SOUNDS. 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 DENIES ABD PAIN/N/V. ACCORDIAN DRAIN IN PLACE TO RIGHT SIDE OF BACK. IV RH PATENT. NO SIGNS OF DISTRESS. CALL BUTTON WITHIN REACH. SAFETY PRECATIONS IN PLACE. WILL CONTINUE TO MONITOR.
[2019-08-11 20:09] VITALS: BP 120/73
--- NOTE | 2019-08-12 00:30 | NUR ---
PT RESTING. BREATHING EVEN AND UNLABORED. NO SOB NOTED. CALL BUTTON WITHIN REACH. SAFETY PRECAUTIONS IN PLACE. WILL CONTINUE TO MONITOR.
[2019-08-12 05:26] VITALS: BP 120/63
--- NOTE | 2019-08-12 05:33 | NUR ---
PT SLEPT MOST OF THE NIGHT WITH NO SIGNS OF DISTRESS. IV PATENT, INFUSING WELL. PT MEDICATED PER EMAR. PT AMBULATORY WITH BRP. ACCORDIAN DRAIN 20CC OUTPUT LIGHT BROWN COLOR WITH FOUL ODOR. PT IN NO SIGNS OF DISTRESS. CALL BUTTON WITHIN REACH. SAFETY PRECAUTIONS IN PLACE. WILL CONTINUE TO MONITOR AND ENDORSE CARE TO DAY SHIFT RN.
[2019-08-12 06:15] LABS: BASOPHIL % 0.6 % (0-2); RED CELL DISTRIBUTION WIDTH 14.4 % (11.5-14.5)
[2019-08-12 06:20] LABS: CARBON DIOXIDE 26.5 mmol/L (21-32); CHLORIDE SERUM 100 mmol/L (98-107); GFR1 > 60 mL/min; GLUCOSE SERUM 111 mg/dL (74-106); POTASSIUM SERUM 4.1 mmol/L (3.5-5.1); SODIUM SERUM 135 mmol/L (136-145)
--- NOTE | 2019-08-12 07:15 | NUR ---
RECEIVED PT FROM HOG RIBBER. PT AWAKE, ALERT. A/OX4. PT ON ROOM AIR WITH NO RESP DISTRESS NOTED. IV ACCESS RH, CDI INFUSING NS AT 10ML/HR. PERIPHERAL PULSES PALPABLE, NO EDEMA NOTED. PT HAS 3 ABDOMINAL INCISIONS OPEN TO AIR WITH NO DRAINAGE NOTED. PT HAS ACCORDIAN DRAIN TO RIGHT POST BACK. PT ABLE TO AMBULATE. PT STATES PAIN IS TOLERABLE AT THIS TIME. PT REPORTS FEELING CONSTIPATED. ACTIVE BS NOTED. WILL MEDICATE FOR CONSIPATION. SAFETY MEASURES IN PLACE, BED LOW AND LOCKED. CALL LIGHT WITHIN REACH.
--- NOTE | 2019-08-12 07:23 | NUR ---
PT RESTING, NO SIGNS OF DISTRESS NOTED. CALL BUTTON WITHIN REACH. SAFETY PRECAUTIONS IN PLACE. WILL CONTINUE TO MONITOR.
[2019-08-12 07:34] LABS: PLATELET COUNT 797 x10^3mcL (130-400)
--- NOTE | 2019-08-12 08:19 | NUR ---
COLACE ADMINISTERED PRN FOR CONSTIPATION. WILL MONITOR.
[2019-08-12 08:52] VITALS: BP 125/73
[2019-08-12] MEDS ORDERED: FLA500 PO (11:38)
[2019-08-12] MEDS ORDERED: LEVOFLOXACIN500 M1 PO (11:39)
[2019-08-12 13:39] VITALS: BP 125/73
--- NOTE | 2019-08-12 13:53 | NUR ---
DISCHARGE INSTRUCTIONS/EDUCATION PROVIDED TO PATIENT. PT TO FOLLOW UP WITH THE TWO APPOINTMENTS PROVIDED. PT VERBALIZES UNDERSTANDING. PT EDUCATION GIVEN REGARDING DRAIN AND KEEPING A LOG OF DRAINAGE EACH DAY UNTIL SEEN BY DR POSADAS. IV ACCESS REMOVED WITH CATHETER INTACT. NO REDNESS OR SWELLING NOTED. PT TO BE TAKEN BY WHEELCHAIR TO PRIVATE [employer] FOR DISCHARGE. DISCHARGE PHOTOS IN CHART OF SURGICAL WOUNDS.
--- NOTE | 2019-08-12 14:00 | NUR ---
ALL NEEDS MET AT THIS TIME. PT ABLE TO MAKE NEEDS KNOWN. CALL LIGHT WITHIN REACH.
== END 2019-08-12 15:00 | disposition home or self-care (01) | DRG 710 ==
LOC: ED 14:20 → MU 18:49
PROVIDERS: Family Medicine; Surgery; ADMIT Internal Medicine
PROC: 0DTJ4ZZ Resection of Appendix, Percutaneous Endoscopic Approach (ICD-10-PCS; principal; 2019-08-02 20:00)
PROC: 0W9F3ZZ Drainage of Abdominal Wall, Percutaneous Approach (ICD-10-PCS; 2019-08-08)
DX: A41.9 Sepsis, unspecified organism (principal); E44.0 Moderate protein-calorie malnutrition; K35.33 Acute appendicitis with perforation, localized peritonitis, and gangrene, with abscess; E87.1 Hypo-osmolality and hyponatremia; F12.10 Cannabis abuse, uncomplicated; E66.9 Obesity, unspecified; Z68.31 Body mass index [BMI] 31.0-31.9, adult
CPT/HCPCS: 32557; G0378; J0330; J1956; J2001; J2175; J2250; J2270; J2405; J2543; J2704; J2710; J3010; J3490; J7030; Q0092; Q9966; Q9967